=== PATIENT | female | born 1970 | race Caucasian/White ===

== ENCOUNTER 2024-05-15 08:20 | Outpatient (CLI) | payer BC, OTHER, SELFPAY ==
--- NOTE | ~2024-05-15 | MR_ITS ---
EXAMINATION: MR forearm RT wo con DATE: 05/15/2024 09:17 INDICATION: Right forearm pain. TECHNIQUE: Magnetic resonance imaging (MRI) of the right forearm was performed without intravenous co ntrast. COMPARISON: Right forearm radiographs 04/30/2024 FINDINGS: Alignment is normal. No fracture. There is edema-like marrow signal intensity in proximal r adius near the radial tubercle. Biceps tendon and brachialis tendon are normal. The musculature is no rmal. IMPRESSION: 1. Edema-like marrow signal intensity in proximal radius, likely stress reaction. Reviewed, dictated and finalized at location A. ING MACHINE OPERATOR IMPRESSION: 1. Edema-like marrow signal intensity in proximal radius, likely stress reactio n.
== END 2024-05-15 08:21 | disposition home or self-care (01) ==
PROVIDERS: PCP Physician Assistant Medical; Visit Provider Nurse Practitioner Family
DX: R93.6 Abnormal findings on diagnostic imaging of limbs (principal); M79.631 Pain in right forearm
CPT/HCPCS: 73218

== ENCOUNTER 2024-06-18 15:56 | Outpatient (CLI) | payer BC, OTHER, SELFPAY ==
--- NOTE | ~2024-06-18 | XR_ITS ---
Clinical Indication: Cough PA and lateral views of the chest: Comparison: None Findings: Probable hazy lingular pneumonia. Right lung clear. Cardiomediastinal silhouette is within normal limits. Bones and soft tissues are unremarkable. Impression: Probable hazy lingular pneumonia. Reviewed, dictated and finalized at [facility]. OYMENT MANAGER Impression: Probable hazy lingular pneumonia.
== END 2024-06-18 15:57 | disposition home or self-care (01) ==
PROVIDERS: PCP Physician Assistant Medical; Visit Provider Physician Assistant Medical
DX: R05.9 Cough, unspecified (principal)
CPT/HCPCS: 71046

== ENCOUNTER 2024-09-11 15:55 | Outpatient (CLI) | payer BC, OTHER, SELFPAY | END 2024-09-11 15:56 | disposition home or self-care (01) | PROVIDERS: PCP Physician Assistant Medical; Visit Provider Physician Assistant Medical | DX: R22.32 Localized swelling, mass and lump, left upper limb (principal) | CPT/HCPCS: 76882 ==

== ENCOUNTER 2024-09-20 17:02 | Outpatient (CLI) | payer BC, OTHER, SELFPAY ==
[2024-09-20 17:31] LABS: Anion Gap 11 mmol/L (4-12); Blood Urea Nitrogen 18 mg/dL (7-17); Carbon Dioxide 27 mmol/L (22-30); Chloride 101 mmol/L (98-107); Estimated Glomerular Filt Rate > 60; Glucose 94 mg/dL (65-110); Sodium 139 mmol/L (137-145)
--- OUTSIDE RECORDS SUMMARY | 2024-09-20 17:39 | XMS_ITS | Clinical Summary ---
Author Organization [facility] Address [facility] [place] [address] Care Team Providers Care Farmer Vegetable Name Role Phone Regina Hinton Primary Care Provider [phone] Allergies Active Allergy Reactions Criticality Noted Date Comments Amoxicillin Anaphylaxis,Hives,It chin g,Swelling High 02/04/2015 Can't recall reaction/ as a child Reaction: ANAPHYLAXIS, Reaction: swelling, itching, hives, , Azithromycin Palpitations,Unknown Low 07/02/2016 Reaction: Heart palpitations, Reaction: Heart palpitations, Cefuroxime Hives Medium 09/26/2017 Fentanyl Other (see comment) 02/05/2015 BP very low after surgey Morphine Hives High 02/04/2015 Huge blister hives Vancomycin Hives,Swelling,Angio te a,Itching,Unknown High 03/22/2012 Reaction: FACIAL SWELLING, , Reaction: swelling, itching, hives, , Medications rivaroxaban 10 MG Tab tablet Take 1 tablet (10 mg total) by mouth daily with supper. Take with food Active Cholecalciferol (VITAMIN D) 1000 UNIT tablet Take 1 tablet (1,000 Units total) by mouth daily. Active ondansetron (ZOFRAN-ODT) 4 MG disintegrating tablet Take 1 tablet (4 mg total) by mouth every 8 (eight) hours as needed for Nausea. 20 tablet 4 Active traMADol (ULTRAM) 50 MG tabletIndications:A cute Pain < 7 Day Supply Take 1 tablet (50 mg total) by mouth every 8 (eight) hours as needed for Pain. Indications : Acute Pain < 7 Day Supply 15 tablet 4 Active Active Problems Problem Noted Date Diagnosed Date Chest pain, unspecified 12/30/2015 Pulmonary emboli ([facility]) 12/30/2015 Family History Medical History Relation Comments Pulmonary Fibrosis Mother Relation Status Comments Mother Social History Tobacco Use Types Packs/Day Years Used Date Smoking Tobacco: Never Smokeless Tobacco: Never Alcohol Use Standard Drinks/Week Comments No 0 (1 standard drink = 0.6 oz pur e alcohol) AUDIT-C Answer Date Recorded Frequency of Alcohol Consumption Never 01/07/2019 Average Number of Drinks Not on file 019 Frequency of Binge Drinking Not on file 12/11 Comments No Sex and Gender Information Value Date Recorded Sex Assigned at Not on file Legal Sex Female 9:56 PM CDT Gender Identity Not on file Sexual Orientation Not on file Last Filed Vital Signs Vital Sign Reading Time Taken Comments Blood Pressure 141/91 06/15/2024 1:00 PM RAZOR GRINDER Pulse 94 06/15/2024 1:05 PM RAZOR GRINDER Temperature 38.1 C (100.5 F) 06/15/2024 1:09 PM RAZOR GRINDER Respiratory Rate 16 06/15/2024 1:05 PM RAZOR GRINDER Oxygen Saturation 95% 06/15/2024 1:05 PM RAZOR GRINDER Inhaled Oxygen Concentration - - Weight 86.2 kg (190 lb) 06/15/2024 10:44 AM RAZOR GRINDER Height 170.2 cm (5' 7 ) 06/15/2024 10:44 AM RAZOR GRINDER Body Mass Index 29.76 06/15/2024 10:44 AM RAZOR GRINDER Plan of Treatment Health Maintenance Due Date Last Done Comments Colorectal Cancer Screening Colonoscopy (10 Years) 1972 Annual Physical 1975 Hepatitis C 1990 DTaP, Tdap and Td Vaccines (1 - Tdap) 1991 Hepatitis B Vaccines (1 of 3 - 19+ 3-dose series) 1991 Zoster Vaccines (1 of 2) 2022 COVID-19 Vaccine (3 - 2023- season) 2024 08/29/2020, 08/01/2020 Influenza Adult (#1) 2024 06/23/2021, 04/08/2017, 07/24/2013 Mammogram Screening 11/03/2025 11/04/2023, 07/01/2021, 06/12/2020, Additional history exists Meningococcal B Vaccine Aged Out No l onger eligible based on patient's age to complete this topic Meningococcal Vaccine Aged Out No denis tonny eligible based on patient's age to complete this topic Pneumococcal Vaccine: Pediatrics (0 to 5 Years) and At-Risk Patients (6 to 64 Years) Aged Out No longer eligible based on patient's age to complete this topic RSV Immunizations Under 20 Months Aged Out No longer eligible based on patient's age to complete this topic Insurance [id number] [place] [address] [facility] Care Teams Farmer Vegetable Relationship Specialty Start Date End Date Regina Hinton PA [address] [place] [id number] PCP - General PHYSICIAN SURVEILLANCE INSPECTOR 09/06/23
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
--- OUTSIDE RECORDS SUMMARY | 2024-09-20 17:39 | XMS_ITS | Referral Summary ---
Author Organization [facility] Address [address] [place] [address] Care Team Providers Care Cooper Apprentice Name Role Phone Juan Mart MD Primary Care Provider [phone] Source Comments [facility],non-owned Affiliates and Associated Physician Practices is amultiple site organization consisting of ambulatory clinics and hospital sitesin [place], [place], [place] and [place]. This disclosure is being madepursuant to the Care Everywhere program and may not contain all information available regarding this patient. Last updated 18.[facility] Allergies Active Allergy Reactions Criticality Noted Date Comments Amoxicillin 02/04/2015 Can't recall reaction/ as a child Azithromycin Palpitations Reaction: Heart palpitations, Cefuroxime Urticaria Medium 09/26/2017 Codeine Other Reaction: CHEST PAIN, Fentanyl Other 02/05/2015 BP very low after surgey Morphine Urticaria High 02/04/2015 Huge blister hives Ibuprofen 02/04/2015 Can't take due to the Xeralto Vancomycin Urticaria,Itching,Swelling High 5 Medications * Be aware that medications may not be up to date on this document. Alwaysverify current medications with the patient. Medication Sig Dispensed Refills Start Date End Date Status XARELTO 10 MG tablet TK 1 T PO D 0 10/24/2017 Act sean oxybutynin (DITROPAN) 5 MG tabletIndications:Urg e incontinence Take 1 tablet by mouth 2 times daily 60 tablet 11 02/07/2018 Active dexlansoprazole (DEXILANT) 60 MG capsule Take 1 capsule by mouth once daily 90 capsule 4 11/27/2019 Active Active Problems Problem Noted Date Diagnosed Date Gastroesophageal reflux disease with esophagitis 11/27/2019 Irritable bowel syndrome wit h both constipation and diarrhea 11/27/2019 Adenomatous colon polyp 11/27/2019 Midline cystocele 02/07/2018 Stress incontinence, female 02/07/2018 Urge incontinence 02/07/2018 Social History Tobacco Use Types Packs/Day Years Used Date Smoking Tobacco: Never Smokeless Tobacco: Never Tobacco Cessation:Counseling Given: No Alcohol Use Standard Drinks/Week Comments No 0 (1 standard drink = 0.6 oz pur e alcohol) Sex and Gender Information Value Date Recorded Sex Assigned at Not on file Gender Identity Female 11/27/2019 8:59 AM CDT Sexual Orientation Not on file Last Filed Vital Signs Vital Sign Reading Time Taken Comments Blood Pressure 146/82 02/07/2018 2:08 PM CDT Pulse 94 02/06/2015 7:23 PM CDT Temperature 37 C (98.6 F) 02/06/2015 7:23 PM CDT Respiratory Rate 16 02/06/2015 7:23 PM CDT Oxygen Saturation 100% 02/06/2015 7:23 PM CDT Inhaled Oxygen Concentration - - Weight 93.9 kg (207 lb) 02/07/2018 2:08 PM CDT Height 166.4 cm (5' 5.5 ) 02/07/2018 2:08 PM CDT Body Mass Index 33.92 02/07/2018 2:08 PM CDT Functional Status Functional Status Response Date of Assess ment Is person deaf or have serious hearing difficult y? No 02/05/2015 Is person blind or have serious difficulty seein g? No 02/05/2015 Does person have serious dif ficulty walking/climbing stairs? Yes 02/05/2015 Does person have difficulty dressing/bathing? No 02/05/2015 Does person have difficulty doing errands alone? No 02/05/2015 Cognitive Status Response Date of Assessm ent Does person have difficulty concentrating/remembering/making decisions? No 02/05/2015 Plan of Treatment Not on file Medical Devices Implanted Type Area Manager Inventory Control Device Identifier Shelf Expiration Date Model / Serial / Lot Anegla 5.0cc - [id number] Implanted:Qty: 1 on 02/05/2015 by Tolu Tobin MD at [facility] Spine Lumbar Musculoskeletal [employer] 11/04/2015 [id number] / [id number] / Putty Bone Matrix Huber 5cc Implanted:Qty: 1 on 02/05/2015 by Tolu Tobin MD at [facility] Lumbar [employer] 03/11/2015 [id number] / / [id number] 6.5 X 40 Mm Streamline Mis Screw Implanted:Qty: 4 on 02/05/2015 by Tolu Tobin MD at [facility] Spine Lumbar [employer] 05-[id number] 40 / / Description:from sterile imp lant tray Scrw St Implanted:Qty: 4 on 02/05/2015 by Tolu Tobin MD at [facility] Lumbar [employer] 01-[id number] / / Description:from sterile imp lant tray 5.5 X 45 Mm Mis Eron Implanted:Qty: 2 on 02/05/2015 by Tolu Tobin MD at [facility] Lumbar [employer] 04-55-CT- 45 / / Description:from sterile imp lant tray Advance Directives * Full Code (Latest Code Status on File) Date Activated Date Inactivated Comments 02/05/2015 1:29 PM 02/06/2015 10:06 PM Care Teams Cooper Apprentice Relationship Specialty Start Date End Date Juan Mart MD [address] [place] [id number] PCP - General 11/02/17
--- OUTSIDE RECORDS SUMMARY | 2024-09-20 17:39 | XMS_ITS | Encounter Summary ---
Author Organization [facility] Address [address] [place] [address] Phone Care Team Providers Care Shipping Order Clerk Name Role Phone Juan Mart MD Primary Care Provider [phone] Regina Hinton Primary Care Provider [phone] Encounter Details Date Type Department Care Team (Latest Contact Info) Description 05/09/2023 Orders Only [facility] Destiny Mejias, RN [address] [facility] [address] [place] [address] Social History Tobacco Use Types Packs/Day Years Used Date Smoking Tobacco: Never Smokeless Tobacco: Never Alcohol Use Standard Drinks/Week Comments No 0 (1 standard drink = 0.6 oz pur e alcohol) AUDIT-C Answer Date Recorded Q1: How often do you have a drink containing alc ohol? 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 Gender Identity Not on file Sexual Orientation Not on file documented as of this encounter Plan of Treatment Not on file documented as of this encounter Procedures Procedure Name Priority Date/Time Associated Diagnosis Comments SCAN - LABS 05/09/2023 documented in this encounter Results * SCAN - LABS (05/09/2023) us Destiny Mejias RN Final Result documented in this encounter Visit Diagnoses Not on filedocumented in this encounter Care Teams Shipping Order Clerk Relationship Specialty Start Date End Date Juan Mart MD [address] [place] [id number] PCP - General Internal Medicine 09/26/17 08/15/23 Regina Hinton PA [address] [place] [id number] PCP - General Physician Tombstone Setter 08/16/23 documented as of this encounter
--- OUTSIDE RECORDS SUMMARY | 2024-09-20 17:39 | XMS_ITS | Clinical Summary ---
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 Gender Identity Not on file Sexual Orientation Not on file Plan of Treatment Health Maintenance Due Date Last Done Comments Hepatitis C Virus (HCV) Screening 1970 TdaP Immunization 1972 Hepatitis B Immunization (1 of 3 - 19+ 3-dose series) 1991 Pap Smear 1993 Cervical Cancer Screening (CCS) 2002 HPV/Cotest 2002 Colonoscopy 2017 Colorectal Cancer Screening 2017 Cologuard 2022 Immunochemical Fecal Occult Blood 2022 Mammogram 2022 Pneumococcal Immunization (5 0+ years) (1 of 1 - PCV) 2022 Zoster Immunization (1 of 2) 2022 Influenza Immunization (#1) 2024 04/08/2017 SARS-COV-2 Immunization ( - season) 2024 Respiratory Syncytial Virus (RSV) Immunization (Adult) (1 - 1-dose 75+ series) 2047 Meningococcal Immunization (ACWY) Aged Out No longer eligible based on patient's age to complete this topic Pneumococcal Immunization Combined Aged Out No longer eligible based on patient's age to complete this topic Rotavirus Immunization Aged Out No lo nger eligible based on patient's age to complete this topic
--- OUTSIDE RECORDS SUMMARY | 2024-09-20 17:39 | XMS_ITS | Referral Summary ---
Author Organization [facility] Address [address] [place] [address] Care Team Providers Care Court Commissioner Name Role Phone Regina Hinton Primary Care Provider [phone] Encounters Date Type Department Care Team Description 07/09/2024 Orders Only [facility] [address] [place] [address] Medical Office [address], [address] [place] [address] Moses Jordan MD Indigestion (Primary Dx); Heartburn from Last 3 Months Allergies Active Allergy Reactions Criticality Noted Date [...] mL TAKE 7.5MLS BY MOUTH EVERY DAY Active rivaroxaban (XARELTO) 10 mg tabletIndicatio ns:Hx [...] (12/04/2020): Added automatically from request for surgery [id number] Encounter for screening colonoscopy 12/04/2020 Overview (12/04/2020): Added automatically from request for surgery [id number] PVC (premature ventricular contraction) 10/25/19 21 Other chest pain 10/24/2020 Adenomatous colon polyp 11/27/2019 Gastroesophageal reflux disease with esophagitis 11/27/2019 Midline cystocele 11/19/2016 Nocturia 11/19/2016 Stress incontinence in female 11/19/2016 Urge incontinence 11/19/2016 custodial current use of anticoagulant therapy 0 08/27/2015 Pulmonary embolism 05/24/2014 Irritable bowel syndrome 07/23/2013 Overview (10/13/2016): IBS (irritable bowel syndrome) Abnormal sexual function 07/23/2013 Overview (10/15/2016): Sexual problems Disorder of thyroid 07/23/2013 Overview (10/15/2016): Thyroid disease Diarrhea 08/14/2012 Immunizations Immunization Administration Dates Next Due Influenza, Quadrivalent, Spl it, Preservative Free, Intramuscular 04/08/2017 Moderna SARS-CoV-2 Monovalent Vaccination (12+ Y RS) 08/29/2020,08/01/2020 Social History Tobacco Use Types Packs/Day Years [...] on file 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 Room: [facility] ENDOSCOPY ROOM 2 Note Status: Finalized [...] scope was passed under direct vision. TheColonoscope [id number] was introduced through the anus and advanced [...] history of colonic polyps CPT copyright 2019 [employer]. All rights reserved. The codes documented in this report are preliminary and upon school supervisor reviewmay be revised to meet current compliance requirements. Recognized by the [employer] for promoting quality [...] Comment:Negative for intraep ithelial lesion or malignancy. Sr Community Manager [facility] st Adrianna Lees Comment: ABC, CT(ASCP) CT screening location: [place] [address] Administration DONOVAN Joseph [id number] Comment Sharmin GambleNikitaRajeev Lees Comment: EXPLANATORY NOTE: The Pap is [...] 4:38 PM CDT 11/05/2020 12:18 AM CDT Fatimah Stone BID CLERK LAB CYTOLOGY ORDERABLES F inal Result [facility] [place] [address] [place] [phone] from Last 3 Months or Most Recently Relevant to Health Maintenance Insurance [facility] Advance Directives For more information, please contact: [phone] * Full Code (Latest Code Status on File) Date Activated Date Inactivated Comments 04/23/2024 7:32 AM 04/23/2024 1:21 PM * Full Code Date Activated Date Inactivated Comments 01/22/2021 8:26 AM 01/22/2021 2:13 PM * Full Code Date Activated Date Inactivated Comments 01/22/2021 8:26 AM 01/22/2021 8:[address] Commissioner Relationship Specialty Start Date End Date Regina Hinton PA [address] [place] [id number] PCP - General Physician Seed Analyst 08/16/23
--- OUTSIDE RECORDS SUMMARY | 2024-09-20 17:39 | XMS_ITS | Patient Health Summary ---
Author Organization [facility] Address [address] [place] [address] Care Team Providers Care Music Journalist Name Role Phone Juan Mart MD Primary Care Provider [phone] Note from [facility],non-owned Affiliates and Associated Physician Practices is amultiple site organization consisting of ambulatory clinics and hospital sitesin [place], [place], [place] and [place]. This disclosure is being madepursuant to the Care Everywhere program and may not contain all information available regarding this patient. Last updated 18.[facility] Allergies * Amoxicillin(Can't recall reaction/ as a child) * Azithromycin(Palpitations) * Cefuroxime(Urticaria) -Medium Criticality * Codeine(Other) * Fentanyl(Other) * Morphine(Urticaria) -High Criticality * Ibuprofen(Can't take due to the Xeralto) * Vancomycin(Urticaria,Itching,Swelling) -High Criticality Medications * Be aware that medications may not be up to date on this document. Alwaysverify current medications with the patient. * XARELTO 10 MG tablet(Started 10/24/2017) TK 1 T PO D * oxybutynin (DITROPAN) 5 MG tablet(Started 02/07/2018) Take 1 tablet by mouth 2 times daily 11 refills remaining * dexlansoprazole (DEXILANT) 60 MG capsule(Started 11/27/2019) Take 1 capsule by mouth once daily 4 refills by 11/26/2020 Active Problems Problem Noted Date Diagnosed Date [...] Mass Index 33.92 02/07/2018 2:08 PM CDT Medical Devices Implanted Type Area Mowing Machine Operator Device Identifier Shelf Expiration Date Model / Serial / Lot Angela 5.0cc - [id number] Implanted:Qty: 1 on 02/05/2015 by Tolu Tobin MD at [facility] Spine Lumbar Musculoskeletal Transplant Foundati 11/04/2015 [id number] / [id number] / Putty Bone Matrix Grfton 5cc Implanted:Qty: 1 on 02/05/2015 by Tolu Tobin MD at [facility] Spine Lumbar [employer] 03/11/2015 [id number] / / [id number] 6.5 X 40 Mm Streamline Mis Screw Implanted:Qty: 4 on 02/05/2015 by Tolu Tobin MD at [facility] Spine Lumbar [employer] 05-[id number]-65- 40 / / Description:from sterile imp lant tray Scrw St Implanted:Qty: 4 on 02/05/2015 by Tolu Tobin MD at [facility] Spine Lumbar [employer] -SETSCR EW / / Description:from sterile imp lant tray 5.5 X 45 Mm Mis Eron Implanted:Qty: 2 on 02/05/2015 by Tolu Tobin MD at [facility] Spine Lumbar [employer] -55-OR- 45 / / Description:from sterile imp lant tray Procedures * COVID-19 VIRUS (CORONAVIRUS)(Performed 02/19/2020) Performed for Exposure to SARS-associated coronavirus * OR CYSTOMETROGRAM W/FINANCIAL SALES CONSULTANT&UP(Performed 02/07/2018) Performed for Urge incontinence, Stress incontinence, female, Midline cystocele * OR CYSTOURETHROSCOPY(Performed 02/07/2018) Performed for Urge incontinence, Stress incontinence, female, Midline cystocele * URINALYSIS - POINT OF CARE (AMB) [facility](Performed 11/19/2016) * CULTURE URINE COMPREHENSIVE(Performed 11/19/2016) * CARDIAC RHYTHM STRIP ORDER(Performed 02/10/2015) * DISCECTOMY / DECOMPRESSION FUSION SPINAL POSTERIOR(Performed 02/05/2015) Performed for HNP (herniated nucleus pulposus), lumbar, Lumbago * OXYGEN(Performed 02/05/2015) * OXYGEN(Performed 02/05/2015) * XR LUMBAR SPINE 2 OR 3VW(Performed 02/05/2015) Performed for Back pain, unspecified location * BLOOD TYPE VERIFICATION(Performed 02/05/2015) * TYPE + SCREEN PANEL(Performed 02/05/2015) * CBC W AUTO DIFFERENTIAL(Performed 02/05/2015) Performed for Preop examination * NM GASTRIC EMPTYING(Performed 11/06/2012) * TISSUE TRANSGLUTAMINASE AB IGA(Performed 08/14/2012) * IGA BLOOD(Performed 08/14/2012) * GROSS + MICRO EXAM(Performed 08/21/1997) Results * COVID-19 VIRUS (CORONAVIRUS) [facility] (02/19/2020 7:20 AM CDT) SARS-COV-2 2019-nCoV Not Detected 2019-nCoV Not Detected 02/22/2020 4:39 PM CDT [facility] [place] Microbiology SPECIMEN FROM NASOPHARYNGEAL STRUCTURE / Unknown Collection / Unknown 02/19/2020 7:20 AM CDT 02/19/2020 7:21 AM CDT Kiley Hdz CRIMINAL INVESTIGATIVE AGENT-IT SECURITY CONSULTING DIRECTOR LAB - [place] ROBIOLOGY ORDERABLES [facility] [address] [place], [place] [address] [place] [address] * OR CYSTOMETROGRAM W/FINANCIAL SALES CONSULTANT&UP (02/07/2018 2:34 PM CDT) Narrative Geoffrey Sullivan Che, MD - 02/07/2018 2:34 PM CDT Geoffrey Sullivan Che, MD 02/07/2018 2:34 PM Multichannel Urodynamic Testing - Procedure Note Indications: Multichannel urodynamic testing is being performed to fully evaluate the patient's voiding dysfunction. The risks, benefits and alternatives have been discussed with emphasis on discomfort and urinary tract infections. Procedure Details: The patient's urethral meatus was cleaned with Betadine (used if not allergic to topical iodine, otherwise hibiclens was used). A 7 Fr. Single sensor air-charged catheter was place into the vagina or into the rectum if the pelvic prolapse required restitution for adequate testing. A 7 Fr. Dual sensor air-charged catheter was inserted into the urethra. During testing, the patient's prolapse was reduced with either procto-swabs, or digitally. Cystometrogram: The bladder was filled with room temperature water at a rate of 100 cc per minute. The patient tolerated this and she was found to have: First sensation (S1) at immediate Sensation of fullness at 36 cc. Maximal cystometric capacity of 150 cc. She does have normal bladder compliance. She does have loss of urine with a rise in detrusor pressure. Valsalva leak point pressure (VLPP): VLPP at 150 cc: 30 VLPP at USP : 30 Urethral pressure profilometry (UPP): Maximal urethral closure pressure (MUCP): 70 Leakage amount: moderate Voiding pressure study (FINANCIAL SALES CONSULTANT): She voided via valsalva. Geoffrey Sullivan MD PROCEDURE/MINOR SURG ICAL ORDERABLES * OR CYSTOURETHROSCOPY (02/07/2018 2:27 PM CDT) Narrative Geoffrey Sullivan Che, MD - 02/07/2018 2:27 PM CDT Geoffrey Sullivan Che, MD 02/07/2018 2:27 PM Cystoscopy Procedure Note Indications: frequency and urgency Procedure Details: The patient was counseled about the procedure including risks, benefits, alternatives, and given a detailed description of what to expect. Cystoscopy was performed with a rigid 70 degree cystoscopy with a 17F sheath under aseptic conditions. The urethra was cleaned with Betadine solution (unless she was allergic to topical iodine when hibiclens was used). A careful examination of all quadrants was performed in a systematic fashion. The patient tolerated the procedure well and was allowed to watch the examination on a video monitor. Urethral visualization was also done. Findings: She was found to have trabeculations only. Efflux was noted from the both ureteral orifice. Squamous metaplasia was noted. No stones, and no other lesions. Condition: Good Complications: None Geoffrey Sullivan MD PROCEDURE/MINOR SURG ICAL ORDERABLES * URINALYSIS - POINT OF CARE (AMB) [facility] (11/19/2016) Glucose UA neg [facility] Bilirubin UA POCT neg [facility] Ketones UA POCT neg [facility] Specific Langley UA 1.010 [facility] Blood Urine POCT neg [facility] pH UA 5/0 [facility] Protein UA neg [facility] Urobilinogen UA neg [facility] Nitrite UA neg [facility] WBC UA neg [facility] Urine specimen (specimen) 11/19/2016 Geoffrey Sullivan MD LAB - POINT OF CARE ORDERABLES [facility] * CULTURE URINE COMPREHENSIVE (11/19/2016) Culture SEE NOTE [facility] Comment: CULTURE, URINE, SPECIAL MICRO NUMBER: [id number] TEST STATUS: FINAL SPECIMEN SOURCE: URINE SPECIMEN QUALITY: ADEQUATE RESULT: No Growth REPORT COMMENT: PREFERRED LAB:->[facility] Test Performed at: [place] [id number] GISELLE BANDA MD Urine specimen (specimen) 11/19/2016 11/19/2016 11:24 PM CDT Narrative [facility] - 11/22/2016 7:00 AM CDT Preferred Lab:->[facility] Geoffrey Sullivan MD LAB - MICROBIOLOGY O RDERABLES [facility] * CARDIAC RHYTHM STRIP ORDER (02/10/2015 10:40 PM CDT) Narrative 02/10/2015 10:40 PM CDT Ordered by an unspecified provider. Scanned Document CARDIAC SERVICES ORD ERABLES * XR LUMBAR SPINE 2 OR 3 VW (02/05/2015 10:42 AM CDT) Anatomical Region Laterality Modality Spine Radiographic Arcelia ging 02/05/2015 11:1 8 AM CDT Narrative 02/05/2015 11:53 AM CDT LUMBAR SPINE FIVE VIEWS Indication: Low back pain, intraoperative localization and decompression. Findings: Five views of the lumbar spine were obtained intraoperatively via fluoroscopic technique. The examination shows metallic pointers overlying the L4 and L5 vertebral bodies. Fluoroscopy was provided. A radiologist was not present. Mild endplate degenerative changes of L4 and L5 are incidentally noted. Edited by Eli Falcon on 02/05/2015 11:25 AM Procedure Note Allan Sharma MD - 02/05/2015 LUMBAR SPINE FIVE VIEWS Indication: Low back pain, intraoperative localization and decompression. Findings: Five views of the lumbar spine were obtained intraoperatively via fluoroscopic technique. The examination shows metallic pointers overlying the L4 and L5 vertebral bodies. Fluoroscopy was provided. A radiologist was not present. Mild endplate degenerative changes of L4 and L5 are incidentally noted. Edited by Eli Falcon on 02/05/2015 11:25 AM Tolu Tobin MD DIAGNOSTIC IMAGING O RDERABLES * BLOOD TYPE VERIFICATION (02/05/2015 6:10 AM CDT) ABO A 02/05/2015 6:51 AM CDT [facility] Rh Type Positive 02/05/2015 6:51 AM CDT [facility] Blood Bank BLOOD SPECIMEN / Unknown Collection / Unknown 02/05/2015 6:10 AM CDT 02/05/2015 6:41 AM CDT Tolu Tobin MD LAB - BLOOD BANK ORD ERABLES Performing Organization Address [facility] Co de Phone Number [facility] B[facility]OD [facility] [address] * TYPE + SCREEN PANEL (02/05/2015 5:52 AM CDT) ABO A 02/05/2015 6:49 AM CDT [facility] Rh Type Positive 02/05/2015 6:49 AM CDT [facility] Antibody Screen Negative 02/05/2015 6:49 AM CDT [facility] Comment:History check perfor med. Retype required. Blood Bank BLOOD SPECIMEN / Unknown Venipuncture / Unknown 02/05/2015 5:52 AM CDT 02/05/2015 5:58 AM CDT Tolu Tobin MD LAB - BLOOD BANK ORD ERABLES Performing Organization Address [facility] de Phone Number [facility] [address] * CBC W AUTO DIFFERENTIAL (02/05/2015 5:47 AM CDT) WBC 5.0 4.4 - 10.7 x10^9/L 02/05/2015 7:05 AM CDT [facility] WBC Corrected x10^9/L 02/05/2015 7:05 AM CDT [facility] RBC 4.38 3.80 - 5.20 x10^12/L 02/05/2015 7:05 AM CDT [facility] Hemoglobin 12.4 12.0 - 15.6 gm/dL 02/05/2015 7:05 AM CDT [facility] Hematocrit 38.5 35.9 - 45.5 % 02/05/2015 7:05 AM CDT [facility] MCV 87.9 80.7 - 98.3 fl 02/05/2015 7:05 AM [facility] MCH 28.3 26.7 - 34.0 pg 02/05/2015 7:05 AM [facility] MCHC 32.2 30.8 - 35.9 gm/dL 02/05/2015 7:05 AM [facility] Platelet Count 219 153 - 416 x10^9/L 02/05/2015 7:05 AM [facility] RDW-CV 13.8 12.1 - 14.9 % 02/05/2015 7:05 AM [facility] MPV 10.2 9.4 - 12.9 fl 02/05/2015 7:05 AM [facility] Neutrophils % 57.9 44.0 - 73.0 % 02/05/2015 7:05 AM [facility] Lymphocytes % 31.5 20.0 - 43.0 % 02/05/2015 7:05 AM [facility] Monocytes % 8.8 5.0 - 13.0 % 02/05/2015 7:05 AM [facility] Eosinophils % 1.4 0.0 - 6.0 % 02/05/2015 7:05 AM [facility] Basophils % 0.2 0.0 - 2.0 % 02/05/2015 7:05 AM [facility] Immature Granulocytes 0.2 0 - 1 % 02/05/2015 7:05 AM [facility] Neutrophil Absolute 2.88 2.01 - 7.14 x10^9/L 02/05/2015 7:05 AM [facility] Lymphocytes Absolute 1.57 1.07 - 3.94 x10^9/L 02/05/2015 7:05 AM [facility] Monocytes Absolute 0.44 0.26 - 1.07 x10^9/L 02/05/2015 7:05 AM [facility] Eosinophils Absolute 0.07 0 - 0.47 x10^9/L 02/05/2015 7:05 AM [facility] Basophils Absolute 0.01 0 - 0.08 x10^9/L 02/05/2015 7:05 AM [facility] Blood BLOOD SPECIMEN / Unknown Venipuncture / Unknown 02/05/2015 5:47 AM CDT 02/05/2015 7:01 AM CDT Bryan Stewart MD LAB - SAEED TOLOGY ORDERABLES [facility] [address] [id number] * NM GASTRIC EMPTYING (11/06/2012 2:33 PM CDT) Anatomical Region Laterality Modality Abdomen Other Impressions 11/06/2012 3:40 PM CDT Impression: Normal gastric emptying based on 1% retention at 4 hours after ingestion of meal. This report was approved by Nicholas Rollins M.D. on 11/06/2012 2:50 PM . I, Dr. PING BRADY M.D. have personally reviewed and interpreted this examination/study. This report was electronically signed by PING BRADY M.D. on 11/06/2012 3:40 PM . Narrative 11/06/2012 3:40 PM CDT Solid Gastric Emptying Study Agent: 0.5 mCi of [id number]-cjlykn colloid mixed in scrambled egg. History: 42-year-old female with gastroesophageal reflux disease, gastroparesis, nausea and vomiting. Technique: The examination was performed after the ingestion of a standardized meal (scrambled egg substitute (120 g Egg Beater, 60 kcal,equivalent to the volume of 2 large eggs), two slices of bread (120 kcal), strawberry jam (30 g, 75 kcal), and water (120 ml). The meal has a caloric value of 255 kcal: 72% carbohydrate,24% protein, 2% fat and 2% fiber. The meal is labeled with 0.5 mCi of Mf-86v-jfwqxlj sulfur colloid. Findings: No prior study is available for comparison. After ingestion of solid meal, sequential images were obtained up to 4 hours: Immediate, 1 hour, 2 hour and 4 hours after ingestion. The percent retention in the stomach is as follows: 1 hour: 69% (Normal range: 37 - 90% ) 2 hour: 41% (Normal range: 30 - 60%) 4 hour: 1% (Normal range: 0 - 10%) T1/2: 99 minutes (Upper limit: 130 minutes) Procedure Note Ping Brady MD - 10/09/2017 Solid Gastric Emptying Study Agent: 0.5 mCi of Lb08u-awujvi colloid mixed in scrambled egg. History: 42-year-old female with gastroesophageal reflux disease,gastroparesis, nausea and vomiting. Technique: The examination was performed after the ingestion of astandardized meal (scrambled egg substitute (120 g Egg Beater, 60kcal,equivalent to the volume of 2 large eggs), two slices of bread (120kcal), strawberry jam (30 g, 75 kcal), and water (120 ml). The meal has a caloric value of 255 kcal: 72% carbohydrate,24%protein, 2% fat and 2% fiber. The meal is labeled with 0.5 mCi aaVq-04l-gfximkd sulfur colloid. Findings: No prior study is available for comparison. After ingestion of solid meal, sequential images were obtained up to 4hours: Immediate, 1 hour, 2 hour and 4 hours after ingestion. The percentretention in the stomach is as follows: 1 hour: 69% (Normal range: 37 - 90% ) 2 hour: 41% (Normal range: 30 - 60%) 4 hour: 1% (Normal range: 0 - 10%) T1/2: 99 minutes (Upper limit: 130 minutes) IMPRESSION Impression: Normal gastric emptying based on 1% retention at 4 hours after ingestionof meal. This report was approved by Nicholas Rollins M.D. on 11/06/2012 2:50 PM. I, Dr. PING BRADY M.D. have personally reviewed and interpreted thisexamination/study. This report was electronically signed by PING BRADY M.D. on 11/06/20123:40 PM . Esther Flores MD NM ORDERABLES * TISSUE TRANSGLUTAMINASE AB IGA (08/14/2012 12:49 PM CHENILLE MACHINE OPERATOR) TTG Antibody IgA <2 0 - 3 U/mL [facility] Comment: Negative 0 - 3 Weak Positive 4 - 10 Positive >10 Tissue Transglutaminase (tTG) has been identified as the endomysial antigen. Studies have demonstr- ated that endomysial IgA antibodies have over 99% specificity for gluten sensitive enteropathy. Performed at: [facility] [address] [id number] Gas Manager: Shine Babb PhD, Phone: [phone] 08/14/2012 12:4 9 PM CHENILLE MACHINE OPERATOR 08/14/2012 1:12 PM CHENILLE MACHINE OPERATOR Maritza Dozier MD LAB - SEROLOGY ORD ERABLES Performing Organization Address City/[facility]/ZIP Co de Phone Number [address] [phone] * IGA BLOOD (08/14/2012 12:49 PM CHENILLE MACHINE OPERATOR) IgA 143 87 - 534 mg/dL [facility] 08/14/2012 12:4 9 PM CHENILLE MACHINE OPERATOR 08/14/2012 1:12 PM CHENILLE MACHINE OPERATOR Maritza Dozier MD LAB - CHEMISTRY OR DERABLES Performing Organization Address [facility] Co de Phone Number [address] [phone] * GROSS + MICRO EXAM (08/21/1997 1:33 PM CHENILLE MACHINE OPERATOR) Result CASE NUMBER [id number] Comment: ORDERING PHYSICIAN MEKHI ECHAVARRIA SPECIMEN TYPE Gastric-stomach Date 08/21/1997 Physician Jessica Echavarria Gross Description Specimen is received in a single formalin filled container, labeled with the patient's name, Risa Burger, and gastric biopsy , and consists of 3 watkins fragments of soft tissue, measuring from 0.3 to 0.5 cm in greatest dimension. The entire specimen is submitted in 1 cassette. GG/c Microscopic Exam Sections of the stomach biopsy show gastric mucosa. The mucosa is lined by foveolar epithelium. Pits to glands ratio is somewhat decreased. Within the stroma an increased number of chronic inflammatory cells which are focally forming follicles are seen. Also neutrophils are present. Microorganisms consistent with Helicobacter species are identified. Diagnosis I. Stomach, biopsy A. Gastritis, chronic, active, mild to moderate. B. Helicobacter organisms present. Pug Mill Operator kr Pathologist Ronald Kerr M.D. [place]. 08/22/1997 1104 <2> CPT code 52616 MISCELLANEOUS SAMPLES / Unknown 08/21/1997 1:33 PM CHENILLE MACHINE OPERATOR 08/21/1997 1:33 PM CHENILLE MACHINE OPERATOR Historical Provider LAB - PATHOLOGY/C YTOLOGY ORDERABLES Care Teams Music Journalist Relationship Specialty Start Date End Date Juan Mart MD [address] [place] [id number] PCP - General 11/02/17
--- OUTSIDE RECORDS SUMMARY | 2024-09-20 17:39 | XMS_ITS | Clinical Summary ---
Author Organization [email or web address] Address [address] [place] [address] Care Team Providers Care Lost And Found Clerk Name Role Phone Juan Mart MD Primary Care Provider [phone] Source Comments [email or web address],non-owned Affiliates and Associated Physician Practices is amultiple site organization consisting of ambulatory clinics and hospital sitesin [place], [place], [place] and [place]. This disclosure is being madepursuant to the Care Everywhere program and may not contain all information available regarding this patient. Last updated 18.[email or web address] Allergies Active Allergy Reactions Criticality Noted Date [...] Stress incontinence, female 02/07/2018 Urge incontinence 02/07/2018 Family History Medical History Relation Name Comments DVT - Deep Vein Thrombosis Maternal Grandmother DVT - Deep Vein Thrombosis Mother Hypertension Mother Pulmonary Embolism Mother Cancer - Colon Paternal Grandfather Hypertension Paternal Grandfather Relation Name Status Comments Maternal Grandmother Mother Paternal Grandfather Social History Tobacco Use Types Packs/Day Years [...] Mass Index 33.92 02/07/2018 2:08 PM CDT Plan of Treatment Health Maintenance Due Date Last Done Comments COLOGUARD (AGES 45-75) - COL ON CA SCREENING 1972 COLON MONITORING 1972 COLONOSCOPY - COLON CA SCREENING 1972 CT COLONOGRAPHY - COLON CA SCREENING 1972 FLEX SIG - COLON CA SCREENING 1972 LIPID TESTING 1972 MAMMOGRAM 1972 PAP SMEAR 1972 HIV SCREENING 1987 HEPATITIS C SCREENING 08/21/1990 DTAP/TDAP/TD VACCINES (1 - Tdap) 1991 HEPATITIS B VACCINE (1 of 3 - 19+ 3-dose series) 1991 Colorectal Cancer Screening 02/14/2020 FIT - COLON CA SCREENING 02/14/2020 02/13/2019 PNEUMOCOCCAL VACCINE 50+ (1 of 1 - PCV) 2022 ZOSTER VACCINE (1 of 2) 2022 COVID-19 VACCINE (1 - 2023-2 5 season) 2024 INFLUENZA VACCINE (#1) 2024 DEPRESSION SCREENING 07/11/2024 HIB VACCINE Aged Out No longer eligi ble based on patient's age to complete this topic HPV VACCINE Aged Out No longer eligi ble based on patient's age to complete this topic MENINGOCOCCAL (Group B) VACC INE SHARED DECISION-MAKING Aged Out No longer eligibl e based on patient's age to complete this topic MENINGOCOCCAL GROUPS A/C/Y/W VACCINE Aged Out No longer eligible b ased on patient's age to complete this topic PNEUMOCOCCAL VACCINE Aged Out No long er eligible based on patient's age to complete this topic Medical Devices Implanted Type Area Assistant Professor Device Identifier Shelf Expiration Date Model / Serial / Lot Angela 5.0cc - [id number] Implanted:Qty: 1 on 02/05/2015 by Tolu Tobin MD at [facility] Lumbar Musculoskeletal Transplant Foundati 11/04/2015 [id number] / [id number] / Putty Bone Matrix [employer] 5cc Implanted:Qty: 1 on 02/05/2015 by Tolu Tobin MD at [facility] [employer]bar [employer] 03/11/2015 [id number] / / [id number] 6.5 X 40 Mm Streamline Mis Screw Implanted:Qty: 4 on 02/05/2015 by Tolu Tobin MD at [facility] Spine Lumbar [employer] 05-PA-65- 40 / / Description:from sterile imp lant tray Scrw St Implanted:Qty: 4 on 02/05/2015 by Tolu Tobin MD at [facility] Spine Lumbar [employer] 01-[id number] EW / / Description:from sterile imp lant tray 5.5 X 45 Mm Mis Eron Implanted:Qty: 2 on 02/05/2015 by Tolu Tobin MD at [facility] Spine Lumbar [employer] 04-55-ID- 45 / / Description:from sterile imp langorge tray Advance Directives * Full Code (Latest Code Status on File) Date Activated Date Inactivated Comments 02/05/2015 1:29 PM 02/06/2015 10:06 PM Care Teams Lost And Found Clerk Relationship Specialty Start Date End Date Juan Mart MD [address] [place] [address] [address] [place], [place] [id number] PCP - General 11/02/17
--- OUTSIDE RECORDS SUMMARY | 2024-09-20 17:39 | XMS_ITS | Encounter Summary ---
Author Organization [facility] Address [address] [place] [address] Care Team Providers Care Walking Dragline Operator Name Role Phone Regina Hinton Primary Care Provider [phone] Encounter Details Date Type Department Care Team (Late st Contact Info) Description 12/16/2018 Abstract [facility] CONVERSION [address] [place] [address] , Generic MD Kash Social History Tobacco Use Types Packs/Day Years Used Date Smoking Tobacco: Never Assessed Comments Unknown Sex and Gender Information Value Date Recorded Sex Assigned at Not on file Legal Sex Female 9:56 PM CDT Gender Identity Not on file Sexual Orientation Not on file documented as of this encounter Plan of Treatment Not on file documented as of this encounter Visit Diagnoses Not on filedocumented in this encounter Care Teams Walking Dragline Operator Relationship Specialty Start Date End Date Regina Hinton PA [address] [place] [id number] PCP - General PHYSICIAN DIP BRAZIER 09/06/23 documented as of this encounter"
== END 2024-09-20 17:03 | disposition home or self-care (01) ==
LOC: ANHLAB 17:03
PROVIDERS: PCP Physician Assistant Medical; Visit Provider Anesthesiology
DX: E87.6 Hypokalemia (principal)
CPT/HCPCS: 36415; 80048

== ENCOUNTER 2024-09-21 00:51 | Day surgery (SDC) | payer BC, OTHER, SELFPAY ==
[2024-09-19 17:19] VITALS: BMI 30.5
--- NOTE | 2024-09-19 17:22 | SUR.PREOP ---
Report to the Outpatient Waiting Room, entrance under the green pavilion located off [facility], at time ___1130____ on date _09/21/2024__. Planned Procedure Time: __1330___.? Time changes happen often and if your time is changed the preop area will call you the afternoon before. - You and your visitor will be asked to self-screen and do not enter if you have any COVID symptoms. Please call surgeon if you need to reschedule. - A mask is optional within the hospital at this time. Patients may have clear liquids (water, carbonated beverages, clear teas, apple juice) until 3 hours prior to surgery with a maximum of 20 ounces. - No food from midnight until time of surgery and no smoking, or chewing tobacco (or any form of nicotine). No chewing gum, candy or mints. - Infants may have breast milk until 4 hours before surgery, formula 6 hours prior to surgery. - Children will be allowed to drink immediately following surgery.? If applicable, please bring a bottle or sippy cup to assist with drinking. Juice, water, soda, and popsicles are readily available.? For infants on formula, please bring formula the day of surgery.? Pacifiers are allowed. Take only the following medications with a SIP of water on the morning of surgery: NONE DO NOT STOP ANY OF YOUR OTHER PRESCRIPTION MEDICATIONS PRIOR TO SURGERY EXCEPT THE FOLLOWING Hold all vitamins and supplements for 3 days per anesthesiologist. Medications to discontinue per physician LAST DOSE OF XARELTO TAKEN ON Tuesday09/17/24 PER [facility] OFFICE Date to take last dose____LAST DOSE OF VITAMINS TAKEN ON 09/19/2023____ Please no make-up, nail citizen of [place], hairspray, perfume, deodorant, or body powder the day of surgery.? No jewelry (including any body piercings) or valuables the day of surgery, leave them at home.? Please take a shower or bath the night before, or the morning of, surgery with an antibacterial soap.? Wear comfortable, loose fitting clothing.? Children are encouraged to wear pajamas. - Jewelry must be removed prior to entering the operating room.? Rings and piercings that are not removed may be cut off. - The hospital will not accept responsibility for valuables.? - Please leave all valuables, including medications, at home the day of surgery. If you are going home after surgery, a licensed front load trash truck driver must drive you home.? - NO public transportation without another adult if you receive anesthesia. - We recommend that an adult stay with you for 24 hours following discharge. - We also recommend that you do not drive, make important decision, drink alcoholic beverages, or take any drugs that were not prescribed by your health care provider for at least 24 hours after your discharge time. For Pediatric surgeries, we recommend two adults accompany the child home. Follow any additional instructions given to you from your surgeon. Telephone instructions given to ____BETH___and asked if any additional questions and then verbalized understanding. Patient advised to call surgeon office or pre surgery nurse liaison [phone] if any additional questions.
[2024-09-21] VITALS (8 sets, daily range): BP systolic 134–159; BP diastolic 75–90; PULSE 68–92; RESP 12–20; TEMP 36.8–36.9; O2SAT 96–100
--- OUTSIDE RECORDS SUMMARY | 2024-09-21 00:53 | XMS_ITS | Clinical Summary ---
Author Organization [facility] Address [address] [place] [address] Care Team Providers Care Pants Cutter Name Role Phone Juan Mart MD Primary Care Provider [phone] Source Comments [facility],non-owned Affiliates and Associated Physician Practices is amultiple site organization consisting of ambulatory clinics and hospital sitesin [place], [place], [place]. This disclosure is being madepursuant to the Care Everywhere program and may not contain all information available regarding this patient. Last updated 18.[facility] Allergies Active Allergy Reactions Criticality Noted Date [...] this topic Medical Devices Implanted Type Area Health And Safety Advisor Device Identifier Shelf Expiration Date Model / Serial / Lot Angela 5.0cc - [id number] Implanted:Qty: 1 on 02/05/2015 by Tolu Tobin MD at [facility] Lumbar Musculoskeletal Transplant Foundati 11/04/2015 [id number] / [id number] / Putty Bone Matrix Grfton 5cc Implanted:Qty: 1 on 02/05/2015 by Tolu Tobin MD at [facility] Lumbar [employer] Inc 03/11/2015 [id number] / / [id number] 6.5 X 40 Mm Streamline Mis Screw Implanted:Qty: 4 on 02/05/2015 by Tolu Tobin MD at [facility] Spine Lumbar [place] 05-PA-65- 40 / / Description:from sterile imp lant tray Scrw St Implanted:Qty: 4 on 02/05/2015 by Tolu Tobin MD at [facility] Spine Lumbar [employer] 01-SETSCR EW / / Description:from sterile imp lant tray 5.5 X 45 Mm Mis Eron Implanted:Qty: 2 on 02/05/2015 by Tolu Tobin MD at [facility] Spine Lumbar [employer] 04-55-MT- 45 / / Description:from sterile imp langorge tray Advance Directives * Full Code (Latest Code Status on File) Date Activated Date Inactivated Comments 02/05/2015 1:29 PM 02/06/2015 10:06 PM Care Teams Pants Cutter Relationship Specialty Start Date End Date Juan Mart MD [address] [place] [address] [address] [place], [place] [id number] PCP - General 11/02/17
--- OUTSIDE RECORDS SUMMARY | 2024-09-21 00:53 | XMS_ITS | Clinical Summary ---
Author Organization [facility] Address [address] [place] [address] Care Team Providers Care Screen Printing Equipment Setter Name Role Phone Regina Hinton Primary Care Provider [phone] Allergies Active Allergy Reactions Criticality Noted Date [...] (12/04/2020): Added automatically from request for surgery [id number] Encounter for screening colonoscopy 12/04/2020 Overview (12/04/2020): Added automatically from request for surgery [id number] PVC (premature ventricular contraction) 10/25/19 21 Other chest pain 10/24/2020 Adenomatous colon polyp 11/27/2019 Gastroesophageal reflux disease with esophagitis 11/27/2019 Midline cystocele 11/19/2016 Nocturia 11/19/2016 Stress incontinence in female 11/19/2016 Urge incontinence 11/19/2016 care home current use of anticoagulant therapy 0 08/27/2015 Pulmonary embolism 05/24/2014 Irritable bowel syndrome 07/23/2013 Overview (10/13/2016): IBS (irritable bowel syndrome) Abnormal sexual function 07/23/2013 Overview (10/15/2016): Sexual problems Disorder of thyroid 07/23/2013 Overview (10/15/2016): Thyroid disease Diarrhea 08/14/2012 Encounters Date Type Department Care Team Description 07/09/2024 Orders Only [facility] Gastroenterology [address] [place] [address] Medical Office Building [address], [address] [place] [address] Moses Jordan MD Indigestion (Primary [...] on file Legal Sex Female 5:49 PM 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 Room: [facility] ENDOSCOPY ROOM 2 Note Status: Finalized Patient [...] scope was passed under direct vision. TheColonoscope [id number] was introduced through the anus and advanced [...] history of colonic polyps CPT copyright 2019 [employer]. All rights reserved. The codes documented in this report are preliminary and upon senior java data architect reviewmay be revised to meet current compliance requirements. Recognized by the [place] [employer]intestinal [employer]oscopy for promoting quality [...] Comment:Negative for intraep ithelial lesion or malignancy. Press Clippings Cutter And Paster Carrington Lindo Comment: ABC, CT(ASCP) CT screening location: [place] [address] [place] [address] Comment Sharmin Lees Comment: EXPLANATORY NOTE: The [...] 11/05/2020 12:18 AM CDT us Fatimah Stone GORE SEAMER LAB CYTOLOGY ORDERABLES F inal Result [facility] [address] [place] [address] from Last 3 Months or Most Recently Relevant to Health Maintenance Insurance [id number] [place] [id number] [place] [address] BLUE ACCESS [place] Advance Directives For more information, please contact: [phone] * Full Code (Latest Code Status on File) Date Activated Date Inactivated Comments 04/23/2024 7:32 AM 04/23/2024 1:21 PM * Full Code Date Activated Date Inactivated Comments 01/22/2021 8:26 AM 01/22/2021 2:13 PM * Full Code Date Activated Date Inactivated Comments 01/22/2021 8:26 AM 01/22/2021 8:26 AM Care Teams Screen Printing Equipment Setter Relationship Specialty Start Date End Date Regina Hinton PA [address] [place] [address] PCP - General Physician Risk And Insurance Manager 08/16/23
--- OUTSIDE RECORDS SUMMARY | 2024-09-21 00:53 | XMS_ITS | Referral Summary ---
Author Organization [facility] Address [address] [place] [address] Care Team Providers Care Paving And Surfacing Labourer Name Role Phone Regina Hinton Primary Care Provider [phone] Encounters Date Type Department Care Team Description 07/09/2024 Orders Only [facility] Gastroenterology [address] [place] [address] Medical Office Building [address], [address] [place] [address] Moses Jordan MD Indigestion (Primary [...] (12/04/2020): Added automatically from request for surgery [id number] Encounter for screening colonoscopy 12/04/2020 Overview (12/04/2020): Added automatically from request for surgery [id number] PVC (premature ventricular contraction) 10/25/19 21 Other chest pain 10/24/2020 Adenomatous colon polyp 11/27/2019 Gastroesophageal reflux disease with esophagitis 11/27/2019 Midline cystocele 11/19/2016 Nocturia 11/19/2016 Stress incontinence in female 11/19/2016 Urge incontinence 11/19/2016 [facility] current use of anticoagulant therapy 0 08/27/2015 [...] on file Legal Sex Female 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 Patient Name: Risa Gonzalez Procedure Date: 01/22/2021 8:16 AM Date of : 1970 Admit Type: Outpatient Age: 50 Gender: Female Attending MD: Ole Betancourt M.D. Room: [facility] ENDOSCOPY ROOM 2 Note Status: Finalized [...] scope was passed under direct vision. TheColonoscope [id number] was introduced through the anus and advanced [...] history of colonic polyps CPT copyright 2019 [place]. All rights reserved. The codes documented in this report are preliminary and upon umbrella repairer reviewmay be revised to meet current compliance requirements. Recognized by the [place] [employer] for Gastrointestinal Endoscopy for promoting quality [...] Comment:Negative for intraep ithelial lesion or malignancy. Information And Referral Director [facility] st Adrianna Lees Comment: ABC, CT(ASCP) CT screening location: [place] [address] [address] [address] Comment Sharmin GambleNikitaRajeev Lees Comment: EXPLANATORY NOTE: [...] CDT 11/05/2020 12:18 AM CDT Fatimah Stone HEALTH WORKER LAB CYTOLOGY ORDERABLES F inal Result [facility] [place] [address] [place] [address] from Last 3 Months or Most Recently Relevant to Health Maintenance Insurance [facility] Advance Directives For more information, please contact: [phone] * Full Code (Latest Code Status on File) Date Activated Date Inactivated Comments 04/23/2024 7:32 AM 04/23/2024 1:21 PM * Full Code Date Activated Date Inactivated Comments 01/22/2021 8:26 AM 01/22/2021 2:13 PM * Full Code Date Activated Date Inactivated Comments 01/22/2021 8:26 AM 01/22/2021 8:26 AM Care Teams Paving And Surfacing Labourer Relationship Specialty Start Date End Date Regina Hinton PA [address] [place] [address] PCP - General Physician Packager And Strapper 08/16/23
--- OUTSIDE RECORDS SUMMARY | 2024-09-21 00:53 | XMS_ITS | Patient Health Summary ---
Author Organization [facility] Address [address] [place] [address] Care Team Providers Care Varying Exceptionalities Teacher Name Role Phone Juan Mart MD Primary Care Provider [phone] Note from [facility],non-owned Affiliates and Associated Physician Practices is amultiple site organization consisting of ambulatory clinics and hospital sitesin [place], [place] and [place]. This disclosure is being madepursuant to the Care Everywhere program and may not contain all information available regarding this patient. Last updated 18.[facility] Allergies * Amoxicillin(Can't recall reaction/ as [...] PM CDT Medical Devices Implanted Type Area Congressional Aide Device Identifier Shelf Expiration Date Model / Serial / Lot Angela 5.0cc - [id number] Implanted:Qty: 1 on 02/05/2015 by Tolu Tobin MD at [facility] Spine Lumbar Musculoskeletal Transplant Foundati 11/04/2015 [id number] / [id number] / Putty Bone Matrix Grfton 5cc Implanted:Qty: 1 on 02/05/2015 by Tolu Tobin MD at [facility] Spine Lumbar [employer] 03/11/2015 [id number] / / [id number] 6.5 X 40 Mm Streamline Mis Screw Implanted:Qty: 4 on 02/05/2015 by Tolu Tobin MD at [facility] Spine Lumbar [employer] 05-PA-65- 40 / / Description:from sterile imp lant tray Scrw St Implanted:Qty: 4 on 02/05/2015 by Tolu Tobin MD at [facility] Spine Lumbar [employer] -SETSCR EW / / Description:from sterile imp lant tray 5.5 X 45 Mm Mis Eron Implanted:Qty: 2 on 02/05/2015 by Tolu Tobin MD at [facility] Spine Lumbar [employer] -55-TN- 45 / / Description:from sterile imp lant tray Procedures * COVID-19 VIRUS (CORONAVIRUS)(Performed 02/19/2020) Performed for Exposure to SARS-associated coronavirus * TN CYSTOMETROGRAM W/TITLE SPECIALIST&UP(Performed 02/07/2018) Performed for Urge incontinence, Stress incontinence, female, Midline cystocele * TN CYSTOURETHROSCOPY(Performed 02/07/2018) Performed for Urge incontinence, Stress [...] 2019-nCoV Not Detected 02/22/2020 4:39 PM CDT [facility] [place] Microbiology SPECIMEN FROM NASOPHARYNGEAL STRUCTURE / Unknown Collection / Unknown 02/19/2020 7:20 AM CDT 02/19/2020 7:21 AM CDT Kiley Hdz BUSINESS PROCESS ANALYST-CONSERVATION OFFICER LAB - [place] ROBIOLOGY ORDERABLES [facility] [address] [place], [place] [id number] [place] [address] * [place] CYSTOMETROGRAM W/TITLE SPECIALIST&UP (02/07/2018 2:34 PM CDT) Narrative Geoffrey Sullivan [...] VLPP at 150 cc: 30 VLPP at [facility] : 30 Urethral pressure profilometry (UPP): Maximal urethral closure pressure (MUCP): 70 Leakage amount: moderate Voiding pressure study (TITLE SPECIALIST): She voided via valsalva. Geoffrey Sullivan MD PROCEDURE/MINOR SURG ICAL ORDERABLES * TN CYSTOURETHROSCOPY (02/07/2018 2:27 PM CDT) Narrative Geoffrey [...] CARE (AMB) [facility] (11/19/2016) Glucose UA neg [facility] Bilirubin UA POCT neg [facility] Ketones UA POCT neg [facility] Specific Taylor UA 1.010 [facility] Blood Urine POCT neg [facility] pH UA 5/0 [facility] Protein UA neg [facility] Urobilinogen UA neg [facility] Nitrite UA neg [facility] WBC UA neg [facility] Urine specimen (specimen) 11/19/2016 Geoffrey Sullivan MD LAB - POINT OF CARE ORDERABLES [facility] * CULTURE URINE COMPREHENSIVE (11/19/2016) Culture SEE NOTE [facility]) Comment: CULTURE, URINE, SPECIAL MICRO NUMBER: [id number] TEST STATUS: FINAL SPECIMEN SOURCE: URINE SPECIMEN QUALITY: ADEQUATE RESULT: No Growth REPORT COMMENT: PREFERRED LAB:->[facility] Test Performed at: [place] [id number] GISELLE BANDA MD Urine specimen (specimen) 11/19/2016 11/19/2016 11:24 PM CDT Narrative [facility] - 11/22/2016 7:00 AM CDT Preferred Lab:->[facility] Geoffrey Sullivan MD LAB - MICROBIOLOGY O RDERABLES [facility] * CARDIAC RHYTHM STRIP ORDER (02/10/2015 10:40 [...] CDT) ABO A 02/05/2015 6:51 AM CDT [facility] B[facility]OD BANK LAB Rh Type Positive 02/05/2015 6:51 AM CDT [facility] Blood Bank BLOOD SPECIMEN / Unknown Collection / Unknown 02/05/2015 6:10 AM CDT 02/05/2015 6:41 AM CDT Tolu Tobin MD LAB - BLOOD BANK ORD ERABLES Performing Organization Address [facility] [[email or web address]] Co de Phone Number [facility] BLOOD [facility] [address] * TYPE + SCREEN PANEL (02/05/2015 5:52 AM CDT) ABO A 02/05/2015 6:49 AM CDT [facility] LAB Rh Type Positive 02/05/2015 6:49 AM CDT [facility] LAB Antibody Screen Negative 02/05/2015 6:49 AM CDT [facility] LAB Comment:History check perfor med. Retype required. Blood Bank BLOOD SPECIMEN / Unknown Venipuncture / Unknown 02/05/2015 5:52 AM CDT 02/05/2015 5:58 AM CDT Tolu Tobin MD LAB - BLOOD BANK ORD ERABLES Performing Organization Address [facility] de Phone Number [facility] BLOOD [facility] [address] * CBC W AUTO DIFFERENTIAL (02/05/2015 5:47 AM CDT) WBC 5.0 4.4 - 10.7 x10^9/L 02/05/2015 7:05 AM CDT [facility] WBC Corrected x10^9/L 02/05/2015 7:05 AM CDT [facility] RBC 4.38 3.80 - 5.20 x10^12/L 02/05/2015 7:05 AM CDT [facility] Hemoglobin 12.4 12.0 - 15.6 gm/dL 02/05/2015 7:05 AM CDT [facility] Hematocrit 38.5 35.9 - 45.5 % 02/05/2015 7:05 AM CDT [facility] MCV 87.9 80.7 - 98.3 fl 02/05/2015 7:05 AM [facility] MCH 28.3 26.7 - 34.0 pg 02/05/2015 7:05 AM [facility] MCHC 32.2 30.8 - 35.9 gm/dL 02/05/2015 7:05 AM [facility] Platelet Count 219 153 - 416 x10^9/L 02/05/2015 7:05 AM [facility] RDW-CV 13.8 12.1 - 14.9 % 02/05/2015 7:05 AM [facility] MPV 10.2 9.4 - 12.9 fl 02/05/2015 7:05 AM [facility] Neutrophils % 57.9 44.0 - 73.0 % 02/05/2015 7:05 AM [facility] Lymphocytes % 31.5 20.0 - 43.0 % 02/05/2015 7:05 AM [facility] Monocytes % 8.8 5.0 - 13.0 % 02/05/2015 7:05 AM [facility] Eosinophils % 1.4 0.0 - 6.0 % 02/05/2015 7:05 AM [facility] Basophils % 0.2 0.0 - 2.0 % 02/05/2015 7:05 AM [facility] Immature Granulocytes 0.2 0 - 1 % 02/05/2015 7:05 AM [facility] Neutrophil Absolute 2.88 2.01 - 7.14 x10^9/L 02/05/2015 7:05 AM [facility] Lymphocytes Absolute 1.57 1.07 - 3.94 x10^9/L 02/05/2015 7:05 AM [facility] Monocytes Absolute 0.44 0.26 - 1.07 x10^9/L 02/05/2015 7:05 AM [facility] Eosinophils Absolute 0.07 0 - 0.47 x10^9/L 02/05/2015 7:05 AM [facility] Basophils Absolute 0.01 0 - 0.08 x10^9/L 02/05/2015 7:05 AM [facility] Blood BLOOD SPECIMEN / Unknown Venipuncture / Unknown 02/05/2015 5:47 AM CDT 02/05/2015 7:01 AM CDT Bryan Stewart MD LAB - SAEED TOLOGY ORDERABLES [facility] [address] [address] * [place] GASTRIC EMPTYING (11/06/2012 2:33 PM [...] Gastric Emptying Study Agent: 0.5 mCi of Sr86a-eocvhh colloid mixed in scrambled egg. History: 42-year-old [...] meal is labeled with 0.5 mCi of Dp-39m-hvtimxd sulfur colloid. Findings: No prior study is [...] Gastric Emptying Study Agent: 0.5 mCi of Bc93j-lkudld colloid mixed in scrambled egg. History: 42-year-old [...] The meal is labeled with 0.5 mCi xcWg-01s-cazvqki sulfur colloid. Findings: No prior study is [...] TISSUE TRANSGLUTAMINASE AB IGA (08/14/2012 12:49 PM MICROFILMING DOCUMENT PREPARER) TTG Antibody IgA <2 0 - 3 U/mL [facility] Comment: Negative 0 - 3 Weak Positive 4 - 10 Positive >10 Tissue Transglutaminase (tTG) has been identified as the endomysial antigen. Studies have demonstr- ated that endomysial IgA antibodies have over 99% specificity for gluten sensitive enteropathy. Performed at: CB [address] [id number] Review Consultant: Shine Babb PhD, Phone: [phone] 08/14/2012 12:4 9 PM MICROFILMING DOCUMENT PREPARER 08/14/2012 1:12 PM MICROFILMING DOCUMENT PREPARER Maritza Dozier MD LAB - SEROLOGY ORD ERABLES Performing Organization Address City/[facility]/ZIP Co de Phone Number [address] [phone] * IGA BLOOD (08/14/2012 12:49 PM MICROFILMING DOCUMENT PREPARER) IgA 143 87 - 534 mg/dL [facility] 08/14/2012 12:4 9 PM MICROFILMING DOCUMENT PREPARER 08/14/2012 1:12 PM MICROFILMING DOCUMENT PREPARER Maritza Dozier MD LAB - CHEMISTRY OR DERABLES Performing Organization Address [facility] [[email or web address]] Co de Phone Number [address] [phone] * GROSS + MICRO EXAM (08/21/1997 1:33 PM MICROFILMING DOCUMENT PREPARER) Result CASE NUMBER [id number] Comment: ORDERING [...] mild to moderate. B. Helicobacter organisms present. Die Maker Apprentice kr Pathologist Ronald Kerr M.D. Snomed. 08/22/1997 1104 <2> CPT code 34939 MISCELLANEOUS SAMPLES / Unknown 08/21/1997 1:33 PM MICROFILMING DOCUMENT PREPARER 08/21/1997 1:33 PM MICROFILMING DOCUMENT PREPARER Historical Provider LAB - PATHOLOGY/C YTOLOGY ORDERABLES Care Teams Varying Exceptionalities Teacher Relationship Specialty Start Date End Date Juan Mart MD [address] [place] [address] PCP - General 11/02/17
--- OUTSIDE RECORDS SUMMARY | 2024-09-21 00:53 | XMS_ITS | Encounter Summary ---
Author Organization [facility] Address [address] [place] [address] Care Team Providers Care Offset Press Operator Apprentice Name Role Phone Regina Hinton Primary Care Provider [phone] Encounter Details Date Type Department Care Team (Late st Contact Info) Description 12/16/2018 Abstract [facility] CON[facility] [address] [place] [address] , Generic MD Kash Social History Tobacco [...] on filedocumented in this encounter Care Teams Offset Press Operator Apprentice Relationship Specialty Start Date End Date Regina Hinton PA [address] [place] [address] PCP - General PHYSICIAN CYLINDER DIE MACHINE OPERATOR 09/06/23 documented as of this encounter
--- OUTSIDE RECORDS SUMMARY | 2024-09-21 00:53 | XMS_ITS | Encounter Summary ---
Author Organization [facility] Address [address] [place] [address] Phone Care Team Providers Care Machine Mover Name Role Phone Juan Mart MD Primary Care Provider [phone] Regina Hinton Primary Care Provider [phone] Encounter Details Date Type Department Care Team (Latest Contact Info) Description 05/09/2023 Orders Only [facility] Destiny Mejias, RN [address] [facility] [address] [place] [address] Social History Tobacco Use Types [...] on file Legal Sex Female 5:49 PM WINDOWS APPLICATION ADMINISTRATOR Gender Identity Not on file Sexual Orientation [...] on filedocumented in this encounter Care Teams Machine Mover Relationship Specialty Start Date End Date Juan Mart MD [address] [place] [address] PCP - General Internal Medicine 09/26/17 08/15/23 Regina Hniton PA [address] [place] [address] PCP - General Physician Hematology Nurse Educator 08/16/23 documented as of this encounter
--- OUTSIDE RECORDS SUMMARY | 2024-09-21 00:53 | XMS_ITS | Clinical Summary ---
Author Organization [facility] Address [facility] [place] [address] Care Team Providers Care Quarry Supervisor Name Role Phone Regina Hinton Primary Care Provider [phone] Allergies Active Allergy Reactions Criticality Noted Date [...] Date Chest pain, unspecified 12/30/2015 Pulmonary emboli ([facility]) 12/30/2015 Family History Medical History Relation Comments [...] Comments Blood Pressure 141/91 06/15/2024 1:00 PM EVENTS DIRECTOR Pulse 94 06/15/2024 1:05 PM EVENTS DIRECTOR Temperature 38.1 C (100.5 F) 06/15/2024 1:09 PM EVENTS DIRECTOR Respiratory Rate 16 06/15/2024 1:05 PM EVENTS DIRECTOR Oxygen Saturation 95% 06/15/2024 1:05 PM EVENTS DIRECTOR Inhaled Oxygen Concentration - - Weight 86.2 kg (190 lb) 06/15/2024 10:44 AM EVENTS DIRECTOR Height 170.2 cm (5' 7 ) 06/15/2024 10:44 AM EVENTS DIRECTOR Body Mass Index 29.76 06/15/2024 10:44 AM EVENTS DIRECTOR Plan of Treatment Health Maintenance Due Date [...] patient's age to complete this topic Insurance [id number] [place] [address] [facility] Care Teams Quarry Supervisor Relationship Specialty Start Date End Date Regina Hinton PA [address] [place] [address] PCP - General PHYSICIAN AUTOMOBILE SALES CONSULTANT 09/06/23
--- OUTSIDE RECORDS SUMMARY | 2024-09-21 00:53 | XMS_ITS | Referral Summary ---
Author Organization [facility] Address [address] [address] Care Team Providers Care Steward/Stewardess Tourist Class Name Role Phone Juan Mart MD Primary Care Provider [phone] Source Comments [facility],non-owned Affiliates and Associated Physician Practices is amultiple site organization consisting of ambulatory clinics and hospital sitesin [place]. This disclosure is being madepursuant to the Care Everywhere program and may not contain all information available regarding this patient. Last updated 18.[facility] Allergies Active Allergy Reactions Criticality Noted Date [...] on file Medical Devices Implanted Type Area Oracle Technical Developer Device Identifier Shelf Expiration Date Model / Serial / Lot Angela 5.0cc - [id number] Implanted:Qty: 1 on 02/05/2015 by Tolu Tobin MD at [facility] Spine Lumbar Musculoskeletal [employer] 11/04/2015 [id number] / [id number] / Putty Bone Matrix Huber 5cc Implanted:Qty: 1 on 02/05/2015 by Tolu Tobin MD at [facility] Lumbar [employer] 03/11/2015 [id number] / / [id number] 6.5 X 40 Mm Streamline Mis Screw Implanted:Qty: 4 on 02/05/2015 by Tolu Tobin MD at [facility] Spine Lumbar [employer] [id number] / / Description:from sterile imp lant tray Scrw St Implanted:Qty: 4 on 02/05/2015 by Tolu Tobin MD at [facility] Lumbar [employer] [id number] / / Description:from sterile imp lant tray 5.5 X 45 Mm Mis Eron Implanted:Qty: 2 on 02/05/2015 by Tolu Tobin MD at [facility] Lumbar [employer] [id number] / / Description:from sterile imp lant tray Advance Directives * Full Code (Latest Code Status on File) Date Activated Date Inactivated Comments 02/05/2015 1:29 PM 02/06/2015 10:06 PM Care Teams Steward/Stewardess Tourist Class Relationship Specialty Start Date End Date Juan Mart MD [address] [place] [id number] PCP - General 11/02/17
--- OUTSIDE RECORDS SUMMARY | 2024-09-21 00:53 | XMS_ITS | Clinical Summary ---
Author Organization [facility] Address [address] [place] [address] Care Team Providers Care Equipment Operator Wage Hand Name Role Phone Unavailable Primary Care Provider Unavailabl e Social History Tobacco Use Types Packs/Day Years Used Date Smoking Tobacco: Never Assessed Comments Unknown Sex and Gender Information Value Date Recorded Sex Assigned at Not on file Legal Sex Female 12:02 PM HALL MONITOR Gender Identity Not on file Sexual Orientation [...]
--- NOTE | 2024-09-21 10:58 | WPDHPUPDATE1 ---
History and Physical Update Update Date/Time: 09/21/24 10:58 History and Physical has been reviewed, including an updated exam of the patient. There are NO changes in the patient's condition. Risks, benefits, and alternatives have been discussed and questions answered. Patient agrees to proceed with procedure.
[2024-09-21] MEDS: LACTATED RINGERS 1,000 ML 30 ML IV CONT (12:06)
--- NOTE | 2024-09-21 12:54 | P.PNAN_ITS ---
Anes - Initial Pre Proc Eval Procedure: Operation Date: 09/21/24 12:30 Proposed Procedures p Excision Lipoma Left Forearm Times One, Left Thigh Times One, Right Thigh Times One - Guzman Traore MD Date/Time: 09/21/24 12:54 Surgeon: Guzman Traore MD Pre Op Diagnosis: Lipoma of Bilateral Thighs and Left Forearm Patient Data Age: 54 Gender: F Height: 1.7 m Weight: 96.7 kg Last Vital Signs Temp 36.9 C 09/21/24 10:45 Pulse 83 09/21/24 10:45 Resp 18 09/21/24 10:45 BP 153/90 H 09/21/24 10:45 Pulse Ox 100 09/21/24 10:45 O2 Del Method Room Air 09/21/24 10:45 Allergies Allergy/AdvReac Type Severity Reaction Status Date / Time albuterol AdvReac Mild Jittery Verified 09/19/24 16:48 azithromycin (From Zithromax) AdvReac Mild Palpitation Verified 09/19/24 16:48 s cefdinir (From Omnicef) AdvReac Mild Hives Verified 09/19/24 16:48 Opioids - Morphine Analogues AdvReac Mild burning & Verified 09/19/24 16:48 welts vancomycin AdvReac Mild Hives Verified 09/19/24 16:48 zolpidem (From Ambien) AdvReac Mild nightmares Verified 09/19/24 16:48 Hi Phenolic AdvReac Transient, Uncoded 09/19/24 16:48 mild liver enzyme elevation Home Medications ?Medication ?Instructions ?Recorded ?Confirmed ?Type mecobalamin (vitamin B12) 1,000 1,000 mcg sublingual DAILY 08/27/22 09/19/24 History mcg disintegrating tablet,sublingual cholecalciferol (vitamin D3) 125 125 mcg PO DAILY 09/12/23 09/19/24 History mcg (5,000 unit) capsule krill 500 mg-omega 3 115 mg-dha 30 1.5 cap PO DAILY 09/12/23 09/19/24 History mg-epa 64 oh-sygdxex-kmqeq capsule (MegaRed [place]-3 Krill Oil) potassium chloride 20 mEq/15 mL 10 meq (7.5 mL) PO DAILY #750 mL 04/23/24 09/21/24 Rx oral liquid rivaroxaban 10 mg tablet (Xarelto) 10 mg PO DAILY #90 tabs 04/23/24 09/19/24 Rx esomeprazole magnesium 40 mg 40 mg PO BID #180 caps 07/06/24 09/21/24 Rx capsule,delayed release fluticasone furoate 27.5 1 spray intranasal DAILY 09/19/24 09/19/24 History mcg/actuation nasal spray,suspension (Flonase Sensimist) Patient hx anesthesia problems: none Family hx anesthesia problems: none Results Review: All pre-operative results and documents have been reviewed as part of the pre- operative evaluation. 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 patient declined surgery History of esophageal stricture White coat syndrome without hypertension Hyperkalemia Hypokalemia Dyslipidemia Vitamin B12 deficiency MTHFR mutation Blood clot in vein Congenital absence of gallbladder Pulmonary emboli MTHFR Vitamin D deficiency GERD (gastroesophageal reflux disease) Thyroid crisis or storm Surgical History Surgical History History of total abdominal hysterectomy H/O eye surgery Hx of tonsillectomy Hx of appendectomy History of cholecystectomy History of spinal fusion Family History Family History Mother Hypercholesteremia Hypertension Father Hypertension Social History Social History Social History: 08/22/24 patient declined SDOH Smoking status: Never smoker Alcohol intake: current Alcohol use details: socially Substance use: never Substance use type: does not use Lack of Transportation: No Lack of Food: Never True Current Housing: I Have Housing Concerned About Future Housing: Decline to Answer Difficulty Paying Gas/Electric Bills: Decline to Answer Difficulty Paying for Meds: Decline to Answer Currently Unemployed: Decline to Answer Education: Trade/Vocational Certificate Difficulty w/ Childcare or Family Care: Decline to Answer Living arrangements: with family Occupation/Education: occupation Gender identity (if verbalized by the patient): Female Spiritual care concerns: No Anes - Eval Final PreProcedure Day of Procedure 09/21/24 12:54 Patient weight: obese Heart: regular rate and rhythm Lungs: clear to auscultation Airway: Mallampati scale class II Neurological: alert and oriented Last oral intake: >/= 8 hours ASA classification: III Emergent: no Anesthetic plan: proceed Anesthesia type and monitoring: general LMA and standard monitoring Results Review: All pre-operative results and documents have been reviewed as part of the pre- operative evaluation. Informed Consent: The patient's anesthetic plan and its attendant risks and benefits were discussed with the patient/family/POA. Questions were solicited and answers provided to the satisfaction of the patient/family/POA.
[2024-09-21] MEDS: BUPivacaine HCL 0.5% PF 30 ML VIAL INFILTRATE (13:19)
[2024-09-21] MEDS: LIDO 1%/EPINEPHRINE 1:100,000 50 ML VIAL 30 ML INFILTRATE (13:20)
--- NOTE | 2024-09-21 14:14 | P.OP_ITS ---
Procedure Note - Detailed Date of Procedure 09/21/24 Pre-op Diagnosis Lipoma of Bilateral Thighs and Left Forearm Post-op Diagnosis Same Procedure Performed Excision of left thigh lipoma x1 Excision of right thigh lipoma x1 Excision of left forearm lipoma x1 Surgeon Guzman Traore MD Production Department Supervisor Larisa ALTAMIRANO student Anesthesia MAC and Local Indications Patient is a 54-year-old female who presented with enlarging subcutaneous masses on her left upper forearm and the bilateral thighs. They were becoming symptomatic with soreness and. She presents now for elective excision. Findings The patient had a lipoma on her left upper inner thigh which measured 5x3x1.5cm. She also had a right thigh lipoma measuring 2x2x0.5cm. The left forearm lipoma measured 2x1.5x0.5cm. Description of Procedure After informed consent was obtained patient brought to the operating room she was placed supine position and then general LMA anesthesia was administered. The bilateral thighs and left upper forearm was then prepped and draped usual sterile fashion. A time-out was then performed correctly identifying the patient as well as identifying the site markings. She she was not given any perioperative IV antibiotics. I 1st started by excising out the lipoma in the upper left forearm. After injecting 1% lidocaine mixed with 0.5% Marcaine with some epinephrine was injected around the subcutaneous mass for local anesthetic effect I then made a transverse incision with a scalpel over the mass. Dissection carried down to the dermis of the skin with a scalpel. I encountered the capsule to the lipomatous mass and then spread around it with Metzenbaum scissors. Then with application of pressure around the edges of the lipoma the tissue was delivered out of the fatty subcutaneous tissues. Electrocautery was then used to excise the tissue and then was sent to pathology labeled as left forearm lipoma. It measured 2x1.5x0.5cm. I then turned my attention towards excising off the left thigh lipomatous mass. Again the same local anesthetic mixture was injected around the mass were all anesthesia. An oblique incision utilizing a scalp was then used to dissect down through the dermis of the skin. Then with Metzenbaum scissors and spread around the capsule the lipomatous mass to dissected out of the surrounding subcutaneous tissues. The tissue was then completely excised out and sent to pathology as well labeled as left thigh lipoma. It measured 5x3x1.5cm. Lastly I excised off the lipoma in the right anterior medial thigh region. An oblique incision made the scalpel in this area after anesthetizing the same local anesthetic mixture. Dissection carried down through the dermis of the skin with a scalpel and then was spreading of Metzenbaum scissors around the mass I dissected free from the surrounding subcutaneous tissues and delivered the tissue out of the surrounding subcutaneous tissues. Electrocautery used to completely excise out the tissue and then achieved hemostasis in the incision. This lipoma was removed in multiple pieces and agitated measured 2x2x0.5cm. This was sent to pathology labeled as right thigh lipoma. All 3 incisions were then closed in a similar fashion after achieving stasis in the wound utilized electrocautery. It was then irrigated with sterile saline solution and then closed utilizing interrupted 3-0 Vicryl sutures in the subcutaneous tissues. The skin edges were then approximated utilizing a running subcuticular 4-0 Monocryl suture. All 3 incisions were then cleaned and then skin glue was applied. The patient tolerated the procedure well no complications. All sponges, needles, and instrument counts were correct at the end procedure. EBL was __5_cc. The patient was awakened and taken to recovery in stable and satisfactory condition. Implants None Estimated Blood Loss 5 Drains No Packing No Pathology Yes (Lipomas x3 sent to pathology) Complications No immediate complications Condition Stable Disposition PACU [facility] Billing Surgery - Charge Forward: Surgery Billing
[2024-09-21] MEDS: ONDANSETRON INJ 4 MG/2 ML VIAL IV PUSH (14:40)
== END 2024-09-21 15:59 | disposition home or self-care (01) ==
PROVIDERS: PCP Physician Assistant Medical; Visit Provider Surgery
PROC: (CPT 25075; principal; 2024-09-21 12:30)
DX: D17.22 Benign lipomatous neoplasm of skin and subcutaneous tissue of left arm (principal); D17.24 Benign lipomatous neoplasm of skin and subcutaneous tissue of left leg; D17.23 Benign lipomatous neoplasm of skin and subcutaneous tissue of right leg; E78.5 Hyperlipidemia, unspecified; E87.6 Hypokalemia; E87.5 Hyperkalemia; E53.8 Deficiency of other specified B group vitamins; E55.9 Vitamin D deficiency, unspecified; K21.9 Gastro-esophageal reflux disease without esophagitis; E05.91 Thyrotoxicosis, unspecified with thyrotoxic crisis or storm; K22.0 Achalasia of cardia; E66.9 Obesity, unspecified; Z68.33 Body mass index [BMI] 33.0-33.9, adult; Z79.01 Long term (current) use of anticoagulants; Z98.890 Other specified postprocedural states; Z90.49 Acquired absence of other specified parts of digestive tract; Z98.1 Arthrodesis status; Z86.711 Personal history of pulmonary embolism; Z87.19 Personal history of other diseases of the digestive system
CPT/HCPCS: 25075; 27337; 27327; 88304; A9270; J2003; J2004; J2405; J2704; J3010; J7120